=== PATIENT | male | born 1965 | race Caucasian/White ===

== ENCOUNTER 2021-05-14 10:40 | Emergency (ER) | payer OTHER ==
[~2021-05-14] VITALS: Ht 172.7 cm; Wt 90.9 kg
[2021-05-14 11:21] LABS: BASOPHILS % (AUTO) 0.6 % (0-1); EOSINOPHILS # (AUTO) 0.1 X10'3 (0-0.9); EOSINOPHILS % (AUTO) 1.8 % (0-6); HEMATOCRIT 44.9 % (42.0-52.0); HEMOGLOBIN 15.5 g/dl (14.0-17.9); LYMPHOCYTES % (AUTO) 29.4 % (21-51); MEAN CORPUSCULAR HEMOGLOBIN 30.7 PG (27.0-31.0); MEAN CORPUSCULAR HGB CONC 34.4 g/dL (33.0-36.5); MEAN CORPUSCULAR VOLUME 89.2 FL (78-98); MEAN PLATELET VOLUME 7.7 FL (7.4-10.4); MONOCYTES # (AUTO) 0.6 X10'3 (0-0.9); NEUTROPHILS % (AUTO) 59.2 % (42-75); PLATELET COUNT 319 X10'3 (140-440); RED BLOOD COUNT 5.04 X10'6 (4.70-6.10); RED CELL DISTRIBUTION WIDTH 13.2 % (11.5-14.5); WHITE BLOOD COUNT 6.8 X10'3 (4.5-11.0)
[2021-05-14 11:36] LABS: ALANINE AMINOTRANSFERASE 45 U/L (12-78); ALBUMIN 4.2 G/DL (3.4-5.0); ALBUMIN/GLOBULIN RATIO 1.1 (1.1-1.5); ALKALINE PHOSPHATASE 83 IU/L (46-116); ANION GAP 10 (8-16); ASPARTATE AMINO TRANSFERASE 21 U/L (10-37); BILIRUBIN,TOTAL 0.4 MG/DL (0.1-1.0); BLOOD UREA NITROGEN 22 MG/DL (7-18); BUN/CREATININE RATIO 16.7 (5.4-32.0); CALCIUM 9.3 MG/DL (8.5-10.1); CHLORIDE 100 MMOL/L (99-107); CREATININE 1.32 MG/DL (0.60-1.10); GLUCOSE 97 MG/DL (70-104); POTASSIUM 4.4 MMOL/L (3.5-5.1); SODIUM 137 MMOL/L (135-145); TOTAL CARBON DIOXIDE 27.2 MMOL/L (24-32); TOTAL PROTEIN 7.9 G/DL (6.4-8.2); eGFR 56 ML/MIN
[2021-05-14 11:39] LABS: LIPASE 80 U/L (73-393)
[2021-05-14] MEDS ORDERED: normal saline 1000ML IV soln IVB ONE (11:50)
[2021-05-14] MEDS ORDERED: potassium Cl 40 mEq/0.45% sodium chloride IV soln 520ml IV ONE (12:00)
[2021-05-14] MEDS ORDERED: iohexol 300mg/ml 100ml inj. ONE (12:28)
[2021-05-14 13:08] LABS: CLARITY,URINE CLEAR (Clear); COLOR,URINE YELLOW (Yellow); GLUCOSE, URINE NEGATIVE (Neg); KETONES,URINE NEGATIVE (Neg); LEUKOCYTE ESTERASE ,URINE NEGATIVE (Neg); NITRITES, URINE NEGATIVE (Neg); OCCULT BLOOD,URINE TRACE-INTACT (Neg); PH,URINE 6.5 (4.8-8.0); PROTEIN,URINE NEGATIVE (Neg); UROBILINOGEN,URINE 0.2 E.U/dL (0.2-1.0)
[2021-05-14 13:09] LABS: UA COLLECTION TYPE VOIDED
[2021-05-14 13:22] LABS: SQUAMOUS EPITHELIAL CELL,UR NONE SEEN /LPF (FEW)
[2021-05-14 13:23] LABS: BACTERIA,URINE NONE SEEN /HPF (Neg)
[2021-05-14] MEDS ORDERED: pantoprazole 40mg Tablet.DR PO ONE (13:25)
[2021-05-14] MEDS ORDERED: mag hydrox/Alum hydrox/simeth 30ml oral suspension PO ONE (13:25)
[2021-05-14 13:32] LABS: RBC,URINE 0-2 /HPF (0-2); WBC,URINE NONE SEEN /HPF (0-4)
--- NOTE | 2021-05-14 13:45 | NUR ---
cephalometric technician at bedside along with police lieutenant prec[employer].
[2021-05-14 14:32] VITALS: BP 152/88
== END 2021-05-14 14:27 | disposition home or self-care (01) ==
LOC: EEVIPCON 10:41 → ER 10:41
DX: R10.11 Right upper quadrant pain (principal); R10.31 Right lower quadrant pain
CPT/HCPCS: 36415; 74177; 76700; 80053; 81001; 83690; 84484; 85025; 93005; 96360; 99285; J7030; Q9967